=== PATIENT | female | born 1995 ===

== ENCOUNTER 2021-02-14 17:16 | Emergency (ER) | payer SELFPAY ==
[2021-02-14] MEDS ORDERED: MORPHINE 4 MG/1 ML INJ IV ONE (17:29)
[2021-02-14] MEDS ORDERED: HYDROmorphone 1 MG/1 ML INJ IV ONE ×2 (18:28→21:46)
[2021-02-14 19:09] LABS: Basophils # (Auto) 0.1 K/mm3 (0.0-0.1); Eosinophils % (Auto) 0.1 % (0.0-4.3); Hematocrit 35.4 % (30.3-42.9); Hemoglobin 11.1 gm/dl (10.1-14.3); Lymphocytes # (Auto) 1.2 K/mm3 (1.2-5.4); Lymphocytes % (Auto) 13.5 % (13.4-35.0); Mean Corpuscular HGB Conc 31 % (30-34); Mean Corpuscular Volume 90 fl (79-97); Monocytes # (Auto) 0.8 K/mm3 (0.0-0.8); Monocytes % (Auto) 9.5 % (0.0-7.3); Platelet Count 302 K/mm3 (140-440); Red Blood Count 3.95 M/mm3 (3.65-5.03); Red Cell Distribution Width 14.4 % (13.2-15.2)
[2021-02-14 19:15] LABS: Alanine Aminotransferase 11 units/L (7-56); Albumin 4.4 g/dL (3.9-5); BUN/Creatinine Ratio 7; Blood Urea Nitrogen 6 mg/dL (7-17); Calcium 9.6 mg/dL (8.4-10.2); Hemolysis Index 9
[2021-02-14] MEDS ORDERED: ONDANSETRON 4 MG/2 ML INJ IV ONE (21:46)
[2021-02-14] MEDS ORDERED: SODIUM CHLORIDE 0.9% 1000 ML 1,000 ML IV ONE (21:46)
--- NOTE | 2021-02-14 21:47 | Emergency Department Report ---
ED Abdominal Pain HPI - General Chief Complaint: Abdominal Pain Stated Complaint: COMPLICATIONS PUI?: No Time Seen by Provider: 02/14/21 21:38 Source: patient, EMS Mode of arrival: Stretcher Limitations: No Limitations - History of Present Illness Initial Comments: Patient is a 25-year-old female that presents emergency room with complaints of abdominal pain. Patient has abdominal pain is bilateral lower quadrant and suprapubic. Patient states that started at 2 PM today. Patient states the pain is worsening. Patient states pain is 10 or 10. Patient states she had a recent surgical 3 days ago. Patient states she has had any pain until today. Patient states she is also having nausea vomiting. Patient states she is not able to hold anything down. Patient states is also having heavy vaginal bleed ing. Patient states she is a G3, . Patient states she was 7 weeks at the time of the . Patient denies recent travel. Patient denies recent international travel. Patient denies exposure to the novel coronavirus. Patient denies sick contacts. Patient denies fever and chills. Patient denies cough. Patient denies diarrhea. Patient denies coming in contact with anybody with symptoms of the novel coronavirus. MD Complaint: abdominal pain -: Sudden, hour(s) Location: LLQ, RLQ, suprapubic Radiation: none Migration to: no migration Severity: severe Severity scale (0 -10): 10 Quality: stabbing Consistency: constant Improves With: rest Worsens With: vomiting, movement Context: recent surgery/procedure Associated Symptoms: nausea, vomiting. denies: diarrhea, fever, chills, constipation, dysuria, hematemesis, hematochezia, melena, hematuria, anorexia, syncope Treatments Prior to Arrival: NSAIDs - Related Data LMP (females 10-50): 2 months Previous Rx's Medication Instructions Recorded Last Taken Type HYDROcodone/APAP 7.5-325 [Kellogg 1 each PO Q6HR PRN #12 tablet 02/15/21 Unknown Rx 7.5/325] Ondansetron [Zofran Odt] 4 mg PO Q8HR PRN #15 tab.rapdis 02/15/21 Unknown Rx Allergies Allergy/AdvReac Type Severity Reaction Status Date / Time No Known Allergies Allergy Unverified 11/01/19 10:54 ED Review of Systems ROS: Stated complaint: COMPLICATIONS Other details as noted in HPI Constitutional: denies: chills, fever Eyes: denies: eye pain, eye discharge, vision change ENT: denies: ear pain, throat pain Respiratory: denies: cough, shortness of breath, wheezing Cardiovascular: denies: chest pain, palpitations Endocrine: no symptoms reported Gastrointestinal: as per HPI, abdominal pain, nausea, vomiting. denies: diarrhea Genitourinary: as per HPI, abnormal menses. denies: urgency, dysuria, discharge Musculoskeletal: denies: back pain, joint swelling, arthralgia Skin: denies: rash, lesions Neurological: denies: headache, weakness, paresthesias Psychiatric: denies: anxiety, depression Hematological/Lymphatic: denies: easy bleeding, easy bruising ED Past Medical Hx - Past Medical History Previous Medical History?: No - Surgical History Past Surgical History?: Yes Additional Surgical History: Surgical - Family History Family history: no significant - Social History Smoking Status: Never Smoker Substance Use Type: None - Medications Home Medications: Home Medications Medication Instructions Recorded Confirmed Last Taken Type HYDROcodone/APAP 7.5-325 [K[place]ogg 1 each PO Q6HR PRN #12 tablet 02/15/21 Unknown Rx 7.5/325] Ondansetron [Zofran Odt] 4 mg PO Q8HR PRN #15 tab.rapdis 02/15/21 Unknown Rx ED Physical Exam - General Limitations: No Limitations General appearance: alert, in no apparent distress - Head Head exam: Present: atraumatic, normocephalic - Eye Eye exam: Present: normal appearance - ENT ENT exam: Present: mucous membranes moist - Neck Neck exam: Present: normal inspection - Respiratory Respiratory exam: Present: normal lung sounds bilaterally. Absent: respiratory distress - Cardiovascular Cardiovascular Exam: Present: regular rate, normal rhythm. Absent: systolic murmur, diastolic murmur, rubs, gallop - GI/Abdominal GI/Abdominal exam: Present: soft, tenderness (Suprapubic tenderness to palpation.), normal bowel sounds - Extremities Exam Extremities exam: Present: normal inspection - Back Exam Back exam: Present: normal inspection - Neurological Exam Neurological exam: Present: alert, oriented X3 - Psychiatric Psychiatric exam: Present: normal affect, normal mood - Skin Skin exam: Present: warm, dry, intact, normal color. Absent: rash ED Course Vital Signs 02/14/21 17:20 Temperature 98.4 F Pulse Rate 78 Respiratory 22 Rate Blood Pressure 135/75 [Left] O2 Sat by Pulse 100 Oximetry - Reevaluation(s) Reevaluation #1: Patient was vomiting during initial evaluation. Patient was given Dilaudid and Zofran. Patient states her pain is better. Patient states her nausea vomiting have resolved. Patient will have an ultrasound done. 02/14/21 22:40 Reevaluation #2: Patient states her pain is much better. Patient states her pain is starting to come back and she is requested a another dose of Dilaudid prior to discharge. I discussed all results and clinical findings with patient. I discussed plan of care with patient. Patient agrees with plan of care. Patient is stable for discharge. Patient will be discharged home. Patient given discharge instructions. Patient voiced understanding of discharge instructions. 02/15/21 02:18 ED Medical Decision Making - Lab Data Result diagrams: 02/14/21 18:39 02/14/21 18:39 - Radiology Data Radiology results: report reviewed ULTRASOUND PELVIS INDICATION / CLINICAL INFORMATION: recent . abd pain and vaginal bleeding. TECHNIQUE: Transvaginal. Duplex Color Doppler used: Yes. COMPARISON: None available FINDINGS: UTERUS: The uterus measures 7.4 x 4.1 x 5.0 cm. The uterus demonstrates a normal sonographic appearance. The endometrial stripe measures 1.1 cm. No significant endometrial fluid. No IUP or abnormal Doppler flow identified. RIGHT ADNEXA: No significant ovarian cyst or mass. Normal color Doppler blood flow. LEFT ADNEXA: Left ovary is not visualized. No suspicious adnexal cyst or mass. URINARY BLADDER: No significant abnormality. FREE FLUID: None. ADDITIONAL FINDINGS: None. IMPRESSION: 1. Endometrial stripe is within normal limits for age, measuring 1.1 cm. No significant endometrial fluid or abnormal Doppler flow to suggest retained products of conception. Clinical correlation is recommended. 2. Otherwise, no significant abnormality. - Medical Decision Making Patient is a 25-year-old female who presents emergency room with complaints of lower abdominal pain after a surgical . Patient had an 3 days prior to arrival. Patient also complained of nausea and vomiting. Patient states the pain is severe. Patient had labs done which were essentially unremarkable except for elevated beta hCG. Patient had a transvaginal ultrasound. Patient's ultrasound shows empty uterus and no IUP. Patient has a narrow stripe. Patient had no acute findings on the ultrasound. Patient's pain and nausea were controlled medications. Patient vital signs are reassuring. Patient stable for discharge. Patient not require inpatient service. Patient not require further emergency medical service. I discussed all results and clinical findings with patient. I discussed plan of care with patient. Patient agrees with plan of care. Patient is stable for discharge. Patient will be discharged home. Patient given discharge instructions. Patient voiced understanding of discharge instructions. - Differential Diagnosis Retained products conception, anemia, abdominal pain, Critical care attestation.: If time is entered above; I have spent that time in minutes in the direct care of this critically ill patient, excluding procedure time. ED Disposition Clinical Impression: Status post elective , Vaginal bleeding Abdominal pain Qualifiers: Abdominal location: lower abdomen, unspecified Qualified Code(s): R10.30 - Lower abdominal pain, unspecified Nausea & vomiting Qualifiers: Vomiting type: unspecified Qualified Code(s): R11.2 - Nausea with vomiting, unspecified Disposition: 01 HOME / SELF CARE / HOMELESS Is pt being admited?: No Does the pt Need Aspirin: No Condition: Stable Instructions: Miscarriage, [id number], Abdominal Pain, Adult, Nausea and Vomiting, Adult, [id number], Dysfunctional Uterine Bleeding, Abdominal Pain (ED) Additional Instructions: Patient to follow-up with primary care in 2 to 3 days. Patient to follow-up with [facility] [employer] [facility] in 2 to 3 days. Patient to rest. Patient to increase water. Patient to avoid strenuous exercise or heavy lifting until cleared by [facility] [employer] [facility]. Nothing per vagina until cleared by [employer] [facility]. Patient to start a vitamin. Patient to take Tylenol or ibuprofen as needed for pain. Patient to take meds as directed. Patient to return to the ER if condition worsens, changes or new symptoms arise. Prescriptions: HYDROcodone/APAP 7.5-325 [K[place]ogg 7.5/325] 1 each PO Q6HR PRN #12 tablet PRN Reason: Pain Ondansetron [Zofran Odt] 4 mg PO Q8HR PRN #15 tab.rapdis PRN Reason: Nausea And Vomiting Referrals: PRIMARY CARE,MD [Primary Care Provider] - 2-3 Days NATHEN PETERSEN MD [Staff Physician] - 2-3 Days Time of Disposition: 01:53
--- NOTE | 2021-02-15 00:49 | Ultrasound Report ---
ULTRASOUND PELVIS INDICATION / CLINICAL INFORMATION: recent . abd pain and vaginal bleeding. TECHNIQUE: Transvaginal. Duplex Color Doppler used: Yes. COMPARISON: None available FINDINGS: UTERUS: The uterus measures 7.4 x 4.1 x 5.0 cm. The uterus demonstrates a normal sonographic appeara nce. The endometrial stripe measures 1.1 cm. No significant endometrial fluid. No IUP or abnormal Dop pler flow identified. RIGHT ADNEXA: No significant ovarian cyst or mass. Normal color Doppler blood flow. LEFT ADNEXA: Left ovary is not visualized. No suspicious adnexal cyst or mass. URINARY BLADDER: No significant abnormality. FREE FLUID: None. ADDITIONAL FINDINGS: None. IMPRESSION: 1. Endometrial stripe is within normal limits for age, measuring 1.1 cm. No significant endometrial f luid or abnormal Doppler flow to suggest retained products of conception. Clinical correlation is rec ommended. 2. Otherwise, no significant abnormality. Signer Name: Devonte Alicea MD Signed: 02/15/2021 12:45 AM Workstation Name: [id number]
[2021-02-15] MEDS ORDERED: HYDROmorphone 1 MG/1 ML INJ IV ONE (02:17)
[2021-02-15 04:17] VITALS: BP 144/90
== END 2021-02-15 04:18 | disposition home or self-care (01) ==
LOC: ED 17:16
DX: N93.9 Abnormal uterine and vaginal bleeding, unspecified (principal); R11.2 Nausea with vomiting, unspecified; R10.31 Right lower quadrant pain; R10.32 Left lower quadrant pain
CPT/HCPCS: 36415; 76830; 80053; 84702; 85025; 96374; 96375; 96376; 99284; J1170; J2270; J2405; J7030; 76857; Q0162